=== PATIENT | male | born 1985 | race Caucasian/White ===

== ENCOUNTER 2017-07-27 08:20 | Emergency (ER) | payer OTHER, SELFPAY ==
--- NOTE | 2017-07-27 08:20 | DT_ITS ---
This patient was seen during an EMR downtime July 20, 2017 - July 27, 2017. This patient may have a combination of paper and electronic documentation or all paper documentation. All documentation is viewable within the e-chart portion of [facility] for each patient visit.
[2017-07-27 08:21] VITALS: BP 147/72; PULSE 65; RESP 18; TEMP 36.1; O2SAT 99; BMI 33.3
--- NOTE | 2017-07-27 08:36 | ED.VIS.GEN ---
History of Present Illness Chief Complaint: Back Informant: Patient Onset: Today, Hours - 1 Context: Sudden Onset Timing: Continuous Quality: ache Location: R low back Current Severity: - - gone now, except for occasional brief sharp pain Maximum Severity: Severe Worsened by: nothing Relieved by: nothing Associated Symptoms: none Narrative: Healthy 32-year-old who had acute pain in his right low back without radiation, no abdominal, scrotal, groin pain. No nausea or vomiting. Was not colicky, but did gradually ease off and now is basically gone except for an occasional brief sharp pain in the same location. No recent overuse or heavy lifting. Prior similar symptoms: No Recent Illness/Hospitalization: No Past Medical History - Allergies and Home Meds Allergies/Adverse Reactions: Allergies No Known Allergies Allergy (Verified 07/27/17 08:22) Primary Care Physician: NOT,DEFINED [NON-STAFF] - Past Medical History: None Surgical History: no surgical history Lives: Spouse/ Significant Other Smoking Status: Never smoker Drugs: None Review of Systems All systems negative except as indicated General: Denies: Chills, Fever Cardiovascular: Denies: Chest pain, Palpitations, Heart racing Respiratory: Denies: Dyspnea, Cough Gastrointestinal: Denies: Abdominal pain, Nausea, Vomiting, Diarrhea, Constipation, Melena, Hematochezia Genitourinary: Denies: Dysuria, Hematuria, Frequency Musculoskeletal: Reports: Back pain. Denies: Extremity Pain Physical Exam Vital Signs/Narrative: Vital Signs Temp Pulse Resp BP Pulse Ox 07/27/17 08:21 97 F L 65 18 147/72 H 99 Inital Vital Signs reviewed: Yes General: Well nourished, Well developed, - - well-appearing nad Head: Normocephalic, Atraumatic Eyes: Perrl, EOMI ENT: Moist mucous membranes, No rhinorrhea Neck: Supple, - - FROM Cardiovascular: Regular rate, Regular rhythm, No murmurs Respiratory: No distress, CTA bilaterally, Chest nontender Abdomen: Soft, Nontender, Nondistended, Normal bowel sounds Back: Nontender, Normal Inspection. Negative for: CVA tenderness Extremities: Nontender, No edema Skin: Normal color, No rash, No Trauma Neurological: Alert, Oriented x3, Cranial nerves II-XII grossly intact, Normal Strength, Normal Sensation, Normal Gait Psychological: Normal affect Diagnostic/Tx/Re-eval Laboratory Tests 07/27/17 08:40 Urine Color Yellow Urine Clarity Sl. Cloudy Urine pH 6.5 Ur Specific [place] 1.015 Urine Protein 15 H Urine Glucose (UA) Normal Urine Ketones Negative Urine Occult Blood 150 H Urine Nitrite Negative Urine Bilirubin Negative Urine Urobilinogen Normal Ur Leukocyte Esterase Negative Urine RBC 10-25 SEEN Urine WBC 0 SEEN Ur Squamous Epith Cells 0-5 SEEN Urine Bacteria 0 SEEN Urine Mucus 0 SEEN - Medical Decision Making Patient urinated through urine strainer and although he did not catch any obvious stones or marilyn, he states it felt like he urinated something solid out. He was monitored for 2 hours and had no recurrence of any symptoms. Urine shows blood. I suspect he had a transiently obstructing kidney stone. Supportive care advised, he is welcome to return if he has recurrent symptoms, at which point I may consider further testing but at this time I do not think that is necessary and he is amenable to that plan. ED Disposition - Plan for ED Patient: Disposition: Home or Assisted Living Chief Complaint: Back Diagnosis: Acute right flank pain, Microscopic hematuria Instructions: ED Stone Renal Passed Referrals: Doctor,Your [STAFF PHYSICIAN] - As Needed
[2017-07-27 08:50] LABS: Bacteria 0 SEEN /hpf (None Seen); Mucous, Urine 0 SEEN /hpf (<or=2+); White Blood Cells 0 SEEN /hpf (0-5)
[2017-07-27 09:02] LABS: Color, Urine Yellow (Yellow); Glucose, Dipstick Normal (Normal); Ketone-Dipstick Negative (Negative); Leukocyte Esterase-Dipstick Negative /ul (Negative); Nitrite-Dipstick Negative (Negative); Occult Blood-Urine 150 /ul (Negative); Protein-Dipstick 15 mg/dl (Negative); Specific Gravity, Urine 1.015 (1.002-1.030); Urine Bilirubin Dipstick Negative (Negative); Urine Clarity Sl. Cloudy (Clear); Urine Urobilinogen Normal (Normal); Urine pH 6.5 (5.0 - 8.0)
[2017-07-27 09:14] LABS: Red Blood Cells-Urine 10-25 SEEN /hpf (0-5); Squamous Epithelial Cells - UA 0-5 SEEN /hpf (0-5)
[2017-07-27 11:35] VITALS: BP 140/83; PULSE 58; RESP 14; O2SAT 98
== END 2017-07-27 11:45 | disposition home or self-care (01) ==
PROVIDERS: Emergency Provider Emergency Medicine
DX: R10.31 Right lower quadrant pain (principal); M54.5 Low back pain; R31.29 Other microscopic hematuria
CPT/HCPCS: 81001; 99283